=== PATIENT | female | born 1990 | race Hispanic/Latino ===

== ENCOUNTER → 2017-06-16 | Emergency (ER) | payer OTHER ==
[~2017-06-16] VITALS: Ht 160 cm; Wt 62.8 kg
[2017-06-16 18:30] VITALS: BP 119/68
== END | disposition home or self-care (01) ==
LOC: FSED 17:07
DX: S50.01XA Contusion of right elbow, initial encounter (principal); S50.11XA Contusion of right forearm, initial encounter; S63.601A Unspecified sprain of right thumb, initial encounter; W18.30XA Fall on same level, unspecified, initial encounter; Y92.008 Other place in unspecified non-institutional (private) residence as the place of occurrence of the external cause; F17.210 Nicotine dependence, cigarettes, uncomplicated
CPT/HCPCS: 99283